=== PATIENT | male | born 1995 | race Hispanic/Latino ===

== ENCOUNTER 2020-06-26 13:53 | Emergency (ER) | payer SELFPAY ==
--- NOTE | 2020-06-26 16:38 | RAD REPORT ---
EXAM DESCRIPTION: Rosemary Single View06/26/2020 4:25 pm CLINICAL HISTORY: Chest pain COMPARISON: none FINDINGS: The lungs appear clear of acute infiltrate. The heart is normal size IMPRESSION: No acute abnormalities displayed
[2020-06-26 16:50] LABS: Absolute Lymphocytes (CBC) 2.6 K/uL (0.7-4.9); Basophils % 0.8 % (0-1.3); Hematocrit 42.6 % (39.6-49.0); Lymphocytes % 19.3 % (15.3-44.8); MPV 10.1 fL (7.6-11.3); RBC Red Blood Cell Count 4.88 M/uL (4.33-5.43)
[2020-06-26 17:02] LABS: Protime INR 1.03
[2020-06-26 17:15] LABS: ALT/SGPT 54 U/L (12-78); AST/SGOT 23 U/L (15-37); Albumin 4.1 g/dL (3.4-5.0); Alkaline Phosphatase 79 U/L (45-117); BUN Blood Urea Nitrogen 10 mg/dL (7-18); Bicarbonate 27 mmol/L (21-32); Bilirubin Direct 0.2 mg/dL (0-0.2); Bilirubin Total 0.5 mg/dL (0.2-1.0); Glucose Level 87 mg/dL (74-106); Magnesium 2.3 mg/dL (1.8-2.4); Potassium 3.8 mmol/L (3.5-5.1); Protein, Total 8.3 g/dL (6.4-8.2); Sodium Level 140 mmol/L (136-145); Troponin (Emerg Dept Use Only) < 0.02 ng/mL (0.0-0.045)
[2020-06-26 17:18] LABS: Barbiturates NEGATIVE (NEGATIVE); Benzodiazepines NEGATIVE (NEGATIVE); Cocaine NEGATIVE (NEGATIVE); METHAMPHETAM NEGATIVE (NEGATIVE); Methadone NEGATIVE (NEGATIVE); Opiates NEGATIVE (NEGATIVE); Phencyclidine NEGATIVE (NEGATIVE); THC Cannibis POSITIVE (NEGATIVE)
--- NOTE | 2020-06-26 17:32 | EDPHYS ---
Physician Documentation [facility] Name: Robbin Truong Age: 24 yrs Sex: Male : 1995 Arrival Date: 06/26/2020 Time: 13:55 Bed 17 Private MD: ED Physician Niko Baez HPI: 06/26 15:05 This 24 yrs old Male presents to ER via Ambulatory with complaints of Chest cp Pain, Breathing Difficulty. 15:05 The patient or guardian reports chest pain that is located primarily in the anterior cp chest wall, mid chest and right side of chest. 15:05 The pain does not radiate. Associated signs and symptoms: Pertinent negatives: cp abdominal pain, cough, diaphoresis, lower extremity pain, lower extremity swelling, near syncope, shortness of breath, syncope. The chest pain is described as sharp. Duration: The patient or guardian reports multiple episodes, that are intermittent. 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 Pain now resolved. Patient reports similar episode yesterday. Historical: - Allergies: 14:16 No Known Allergies; ca1 - Home Meds: 14:16 None [Active]; ca1 - PMHx: 14:16 None; ca1 - PSHx: 14:16 None; ca1 - Immunization history:: Adult Immunizations up to date, Flu vaccine is not up to date. - Social history:: Smoking status: Patient reports the use of cigarette tobacco products, smokes one-half pack cigarettes per day. ROS: 15:10 Constitutional: Negative for body aches, chills, fever, poor PO intake. cp 15:10 Eyes: Negative for injury, pain, redness, and discharge. cp 15:10 Neck: Negative for pain with movement, pain at rest, stiffness. 15:10 Cardiovascular: Positive for chest pain, Negative for edema, palpitations. 15:10 Respiratory: Negative for cough, shortness of breath, wheezing. 15:10 Abdomen/GI: Negative for abdominal pain, nausea, vomiting, and diarrhea, constipation. 15:10 Back: Negative for pain at rest, pain with movement, radiated pain. 15:10 Neuro: Negative for altered mental status, dizziness, headache, numbness, syncope, near syncope, weakness. 15:10 All other systems are negative. Exam: 15:15 Constitutional: The patient appears in no acute distress, alert, awake, cp non-diaphoretic, non-toxic, well developed, well nourished, obese. 15:15 Head/Face: Normocephalic, atraumatic. cp 15:15 Eyes: Periorbital structures: appear normal, Conjunctiva: normal, no exudate, no cp injection, Sclera: no appreciated abnormality, Lids and lashes: appear normal, bilaterally. 15:15 ENT: External ear(s): are unremarkable, Nose: is normal, Mouth: Lips: moist, Oral mucosa: moist, Posterior pharynx: Airway: no evidence of obstruction, patent. 15:15 Neck: ROM/movement: is normal, is supple, without pain, no range of motions limitations. 15:15 Chest/axilla: Inspection: normal, Palpation: is normal, no crepitus, no tenderness. 15:15 Cardiovascular: Rate: normal, Rhythm: regular, Edema: is not appreciated, JVD: is not appreciated. 15:15 Respiratory: the patient does not display signs of respiratory distress, Respirations: cp normal, no use of accessory muscles, no retractions, labored breathing, is not present, Breath sounds: are clear throughout, no decreased breath sounds, no stridor, no wheezing. 15:15 Abdomen/GI: Inspection: abdomen appears normal, Palpation: abdomen is soft and non-tender, in all quadrants. 15:15 Back: pain, is absent, ROM is normal. 15:15 Neuro: Orientation: to person, place \T\ time. Mentation: is normal, Cerebellar function: is grossly normal, Motor: moves all fours, strength is normal, Sensation: is normal. Vital Signs: 14:09 BP 157 / 75; Pulse 87; Resp 16 S; Temp 98.1(TE); Pulse Ox 100% on R/A; Weight 127.01 kg ca1 (R); Height 5 ft. 8 in. (172.72 cm) (R); Pain 3/10; 15:59 BP 134 / 75; Pulse 85; Resp 17; Temp 99.1(O); Pulse Ox 100% on R/A; mh5 16:32 BP 136 / 80; Pulse 78; Resp 16; Pulse Ox 100% ; bp 17:30 BP 127 / 79; Pulse 80; Resp 17; Temp 98.9; Pulse Ox 100% ; bp 14:09 Body Mass Index 42.57 (127.01 kg, 172.72 cm) ca1 MDM: 15:03 Patient medically screened. [facility] 17:30 Data reviewed: vital signs, nurses notes, lab test result(s), EKG, radiologic studies, cp and as a result, I will discharge patient. 17:30 Test interpretation: by ED physician or midlevel provider: ECG, chest xray negative for cp infiltrates. Counseling: I had a detailed discussion with the patient and/or guardian regarding: the historical points, exam findings, and any diagnostic results supporting the discharge/admit diagnosis, lab results, radiology results, the need for outpatient follow up, a family practitioner, to return to the emergency department if symptoms worsen or persist or if there are any questions or concerns that arise at home. Special discussion: Based on the patient's history, exam, and Dx evaluation, there is no indication for emergent intervention or inpatient Tx. It is understood by the patient/guardian that if the Sx's persist or worsen they need to return immediately for re-evaluation. 06/26 16:13 Order name: Basic Metabolic Panel; Complete Time: 17:23 cp 06/26 16:13 Order name: CBC with Diff; Complete Time: 17:07 cp 06/26 17:07 Interpretation: Normal except: WBC 13.5; LILIYA% 75.0; NEUT A 10.1. cp 06/26 16:13 Order name: LFT's; Complete Time: 17:23 cp 06/26 16:13 Order name: Magnesium; Complete Time: 17:23 cp 06/26 16:13 Order name: PT-INR; Complete Time: 17:07 cp 06/26 16:13 Order name: Troponin (emerg Dept Use Only); Complete Time: 17:23 cp 06/26 14:17 Order name: EKG; Complete Time: 14:17 ca1 06/26 14:17 Order name: EKG - Nurse/Tech; Complete Time: 14:22 ca1 06/26 16:13 Order name: XRAY Chest (1 view); Complete Time: 16:49 cp 06/26 16:49 Interpretation: Report reviewed. cp 06/26 16:13 Order name: Cardiac monitoring; Complete Time: 16:45 cp 06/26 16:13 Order name: IV Saline Lock; Complete Time: 16:46 cp 06/26 16:13 Order name: D-Dimer; Complete Time: 17:07 cp 06/26 16:13 Order name: UDS; Complete Time: 17:23 cp 06/26 16:37 Order name: Urine Dipstick--Ancillary (enter results) bd 06/26 16:13 Order name: Labs collected and sent; Complete Time: 16:46 cp 06/26 16:13 Order name: O2 Per Protocol; Complete Time: 16:46 cp 06/26 16:13 Order name: O2 Sat Monitoring; Complete Time: 16:46 cp Administered Medications: No medications were administered Disposition: 06/27 10:54 Co-signature as Attending Physician, Niko Baez MD I agree with the assessment and braxton plan of care. Disposition: 06/26/20 17:32 Discharged to Home. Impression: Other chest pain. - Condition is Stable. - Discharge Instructions: Nonspecific Chest Pain. - Prescriptions for Ibuprofen 800 mg Oral Tablet - take 1 tablet by ORAL route every 8 hours As needed take with food; 30 tablet. - Work release form, Medication Reconciliation Form, Thank You Letter, Antibiotic Education, Prescription Opioid Use form. - Follow up: Private Physician; When: 1 - 2 days; Reason: Worsening of condition. - Problem is new. - Symptoms have improved. Signatures: Dispatcher [employer] EDNiko Pires MD MD cha Page, Corey, PA PA cp Peltier, Brian, RN RN Lidia Ramirez RN RN ca1 Corrections: (The following items were deleted from the chart) 06/26 17:55 17:32 06/26/2020 17:32 Discharged to Home. Impression: Other chest pain. Condition is bp Stable. Forms are Medication Reconciliation Form, Thank You Letter, Antibiotic Education, Prescription Opioid Use. Follow up: Private Physician; When: 1 - 2 days; Reason: Worsening of condition. Problem is new. Symptoms have improved. cp
--- NOTE | 2020-06-26 17:32 | ER ---
Nurse's Notes [facility] Name: Robbin Truong Age: 24 yrs Sex: Male : 1995 Arrival Date: 06/26/2020 Time: 13:55 Bed 17 Private MD: Diagnosis: Other chest pain Presentation: 06/26 14:09 Chief complaint: Patient states: Chest pain, midsternal today, R sided chest pain ca1 yesterday. "I also felt anxious today". Had been having chest pains off/on for almost a year now. Chest pain, intermittent, non-radiating. Chest pain with deep breathing. Denies cough. Denies injury. Coronavirus screen: Client denies travel out of the [place] in the last 14 days. At this time, the client does not indicate any symptoms associated with coronavirus-19. The client reports previous COVID testing was negative. Date of collection: March 2020. Ebola Screen: Patient negative for fever greater than or equal to 101.5 degrees Fahrenheit, and additional compatible Ebola Virus Disease symptoms Patient denies exposure to infectious person. Patient denies travel to an Ebola-affected area in the 21 days before illness onset. No symptoms or risks identified at this time. Initial Sepsis Screen: Does the patient meet any 2 criteria? No. Patient's initial sepsis screen is negative. Does the patient have a suspected source of infection? No. Patient's initial sepsis screen is negative. Risk Assessment: Do you want to hurt yourself or someone else? Patient reports no desire to harm self or others. Onset of symptoms was June 26, 2020. 14:09 Method Of Arrival: Ambulatory ca1 14:09 Acuity: CHRISTA 3 ca1 Triage Assessment: 14:10 General: Appears in no apparent distress. uncomfortable, Behavior is cooperative, bp appropriate for age, anxious. Pain: Complains of pain in mid-sternal area. EENT: No deficits noted. Neuro: No deficits noted. Cardiovascular: Reports chest pain, Rhythm is sinus rhythm. Respiratory: No deficits noted. GI: No signs and/or symptoms were reported involving the gastrointestinal system. : No signs and/or symptoms were reported regarding the genitourinary system. Derm: No deficits noted. Musculoskeletal: No deficits noted. Historical: - Allergies: 14:16 No Known Allergies; ca1 - Home Meds: 14:16 None [Active]; ca1 - PMHx: 14:16 None; ca1 - PSHx: 14:16 None; ca1 - Immunization history:: Adult Immunizations up to date, Flu vaccine is not up to date. - Social history:: Smoking status: Patient reports the use of cigarette tobacco products, smokes one-half pack cigarettes per day. Screenin:10 Abuse screen: Denies threats or abuse. Denies injuries from another. Nutritional bp screening: No deficits noted. Tuberculosis screening: No symptoms or risk factors identified. Fall Risk None identified. Assessment: 14:10 General: SEE TRIAGE NOTE. bp 16:00 Reassessment: Patient appears in no apparent distress at this time. Patient and/or bp family updated on plan of care and expected duration. Pain level reassessed. Patient is alert, oriented x 3, equal unlabored respirations, skin warm/dry/pink. Pain: Denies pain. Cardiovascular: Rhythm is sinus rhythm. 17:53 Reassessment: PT D/C HOME AMBULATORY, DX WITH NONSPECIFIC CHEST PAIN. bp Vital Signs: 14:09 BP 157 / 75; Pulse 87; Resp 16 S; Temp 98.1(TE); Pulse Ox 100% on R/A; Weight 127.01 kg ca1 (R); Height 5 ft. 8 in. (172.72 cm) (R); Pain 3/10; 15:59 BP 134 / 75; Pulse 85; Resp 17; Temp 99.1(O); Pulse Ox 100% on R/A; mh5 16:32 BP 136 / 80; Pulse 78; Resp 16; Pulse Ox 100% ; bp 17:30 BP 127 / 79; Pulse 80; Resp 17; Temp 98.9; Pulse Ox 100% ; bp 14:09 Body Mass Index 42.57 (127.01 kg, 172.72 cm) ca1 ED Course: 13:55 Patient arrived in ED. ag5 14:10 Patient has correct armband on for positive identification. Bed in low position. Call bp light in reach. Side rails up X2. Adult w/ patient. panel edge painter on. Pulse ox on. NIBP on. 14:14 Triage completed. ca1 14:16 Arm band placed on right wrist. ca1 15:02 Niko Cisneros PA is PHCP. cp 15:02 Niko Baez MD is Attending Physician. cp 15:07 Chris Saleh, RN is Primary Nurse. bp 16:00 Pillow given. Pulse ox on. NIBP on. [facility] 16:26 XRAY Chest (1 view) In Process Unspecified. EDMS 16:30 Inserted saline lock: 22 gauge in right antecubital area, using aseptic technique. bp Blood collected. 17:53 No provider procedures requiring assistance completed. IV discontinued, intact, bp bleeding controlled, No redness/swelling at site. Pressure dressing applied. Patient maintains SpO2 saturation greater than 95% on room air. Administered Medications: No medications were administered Outcome: 17:32 Discharge ordered by MD. cp 17:54 Discharged to home ambulatory. bp 17:54 Condition: stable 17:54 Discharge instructions given to patient, Instructed on discharge instructions, follow up and referral plans. medication usage, Demonstrated understanding of instructions, follow-up care, medications, Prescriptions given X 1. 17:55 Patient left the ED. bp Signatures: Dispatcher [employer] EDPR Niko Cisneros PA PA cp Martinez, Maria 5 Chris Saleh, RN RN bp Lidia Arthur RN RN [facility] Kian Calles [facility]
[2020-06-26 18:09] VITALS: O2SAT 100
[2020-06-26 18:14] VITALS: BP 127/79; TEMP 98.9
[2020-06-26 20:26] LABS: Urine Blood NEGATIVE (NEG); Urine Glucose NEGATIVE (NEG); Urine Protein TRACE (NEG); Urine pH 8.5 (5.0-7.0)
--- NOTE | 2020-06-27 07:26 | EKG ---
Test Date: 2020-06-26 Test Time: 14:24:24 Poultry Farmer Egg: YASMIN MEASUREMENT RESULTS: Intervals: Rate: 79 CT: 136 QRSD: 88 QT: 358 QTc: 410 [place]: P: 53 CT: 136 QRS: 66 T: 5 INTERPRETIVE STATEMENTS: Normal sinus rhythm with sinus arrhythmia Possible Inferior infarct, age undetermined Abnormal ECG No previous ECG available for comparison Electronically Signed On 06-27-20 07:24:52 CDT by Shaheed Brunson
== END 2020-06-26 17:55 | disposition home or self-care (01) ==
LOC: ER 13:53
DX: R07.89 Other chest pain (principal); F17.210 Nicotine dependence, cigarettes, uncomplicated
CPT/HCPCS: 36415; 71045; 80048; 80076; 80307; 81003; 83735; 84484; 85025; 85379; 85610; 93005; 99285

== ENCOUNTER 2022-06-18 03:58 | Emergency (ER) | payer BC, SELFPAY ==
[2022-06-18] MEDS ORDERED: AZITHROMYCIN 250 MG TAB ONE (04:36)
--- NOTE | 2022-06-18 04:36 | ER ---
Nurse's Notes [facility] Name: Robbin Truong Age: 26 yrs Sex: Male : 1995 Arrival Date: 06/18/2022 Time: 04:04 Bed 13 Private MD: Diagnosis: Acute pharyngitis, unspecified;Fever, unspecified Presentation: 06/18 04:08 Chief complaint: Patient states: "I have had a sore throat for about a week now. Now tw5 the pain is getting so bad it hurts to drink or swallow anything.". Coronavirus screen: Vaccine status: Patient reports being unvaccinated. Ebola Screen: Patient negative for fever greater than or equal to 101.5 degrees Fahrenheit, and additional compatible Ebola Virus Disease symptoms Patient denies exposure to infectious person. Patient denies travel to an Ebola-affected area in the 21 days before illness onset. Initial Sepsis Screen: Does the patient meet any 2 criteria? No. Patient's initial sepsis screen is negative. Does the patient have a suspected source of infection? No. Patient's initial sepsis screen is negative. Risk Assessment: Do you want to hurt yourself or someone else? Patient reports no desire to harm self or others. Onset of symptoms is unknown. 04:08 Method Of Arrival: Ambulatory tw5 04:08 Acuity: CHRISTA 4 tw5 Triage Assessment: 04:09 General: Appears uncomfortable, obese, Behavior is calm, cooperative, appropriate for tw5 age. Pain: Pain currently is 8 out of 10 on a pain scale. EENT: Reports pain when swallowing. Historical: - Allergies: 04:09 No Known Allergies; tw5 - Home Meds: 04:09 None [Active]; tw5 - PMHx: 04:09 None; tw5 - PSHx: 04:09 None; tw5 - Immunization history:: Flu vaccine is not up to date. - Social history:: Smoking status: Patient reports the use of cigarette tobacco products, denies chronic smoking, but will smoke occasionally, Reported history of juuling and/or vaping. Screenin:52 Abuse screen: Denies threats or abuse. Denies injuries from another. Nutritional lg3 screening: No deficits noted. Tuberculosis screening: No symptoms or risk factors identified. Fall Risk None identified. Assessment: 04:52 General: Appears in no apparent distress. uncomfortable, Behavior is calm, cooperative. lg3 Pain: Complains of pain in throat. Neuro: No deficits noted. Douglas Agitation-Sedation Scale (RASS): 0 - Alert and Calm Level of Consciousness is awake, alert, obeys commands, Oriented to person, place, time, situation. Cardiovascular: No deficits noted. Denies chest pain, shortness of breath, Capillary refill < 3 seconds Clubbing of nail beds is absent JVD is absent Patient's skin is warm and dry. Respiratory: Reports cough that is persistent Airway is patent Trachea midline Respiratory effort is even, unlabored, Respiratory pattern is regular, symmetrical, Breath sounds are clear bilaterally. GI: No deficits noted. No signs and/or symptoms were reported involving the gastrointestinal system. Abdomen is round non-distended, obese, Bowel sounds present X 4 quads. Abd is soft and non tender X 4 quads. : No deficits noted. No signs and/or symptoms were reported regarding the genitourinary system. EENT: Throat is reddened with gag reflex present. Derm: No deficits noted. No signs and/or symptoms reported regarding the dermatologic system. Skin is intact, is healthy with good turgor, Skin is dry, Skin is normal, Skin temperature is warm. Musculoskeletal: No deficits noted. No signs and/or symptoms reported regarding the musculoskeletal system. Circulation, motion, and sensation intact. Range of motion: intact in all extremities. Vital Signs: 04:08 BP 158 / 99; Pulse 68; Resp 18; Temp 98.1; Pulse Ox 99% on R/A; Weight 136.08 kg; tw5 Height 5 ft. 8 in. (172.72 cm); Pain 8/10; 04:08 Body Mass Index 45.61 (136.08 kg, 172.72 cm) tw5 ED Course: 04:04 Patient arrived in ED. ja2 04:09 Triage completed. tw5 04:09 Arm band placed on right wrist. tw5 04:18 Niko Baez MD is Attending Physician. [facility] 04:52 Marisa Hankins, RAFFY is Primary Nurse. lg3 04:52 Patient has correct armband on for positive identification. Bed in low position. Call lg3 light in reach. Side rails up X 1. Client placed on continuous cardiac and pulse oximetry monitoring. NIBP monitoring applied. Door closed. Noise minimized. Warm blanket given. 04:52 Flu Sent. lg3 04:52 Strep Sent. lg3 04:52 SARS-COV-2 RT PCR (Document "Date of Onset" if Symptomatic) Sent. lg3 04:52 No provider procedures requiring assistance completed. Patient did not have IV access lg3 during this emergency room visit. Administered Medications: 04:52 Drug: Zithromax (azithromycin) 500 mg Route: PO; lg3 04:55 Follow up: Response: No adverse reaction lg3 Medication: 04:52 VIS not applicable for this client. lg3 Outcome: 04:35 Discharge ordered by . braxton 04:52 Discharged to home ambulatory. lg3 04:52 Condition: stable 04:52 Discharge instructions given to patient, Instructed on discharge instructions, follow up and referral plans. medication usage, Demonstrated understanding of instructions, follow-up care, medications, Prescriptions given X 3. 04:56 Patient left the ED. lg3 Signatures: Niko Baez MD MD cha Gibson, Lacie, RN RN lg3 Nathalia Hernandes Glenis Gore 5
--- NOTE | 2022-06-18 04:36 | EDPHYS ---
Physician Documentation [facility] Name: Robbin Truong Age: 26 yrs Sex: Male : 1995 Arrival Date: 06/18/2022 Time: 04:04 Bed 13 Private MD: ED Physician Niko Baez HPI: 06/18 04:30 This 26 yrs old Male presents to ER via Ambulatory with complaints of Cough, braxton Sore Throat. 04:30 The patient or guardian reports cough, flu symptoms, arthralgias, low-grade fever, braxton myalgias. Onset: The symptoms/episode began/occurred 3 day(s) ago. Severity of symptoms: At their worst the symptoms were mild, in the emergency department the symptoms are unchanged. Modifying factors: The symptoms are alleviated by nothing, the symptoms are aggravated by nothing. Associated signs and symptoms: The patient has no apparent associated signs or symptoms. The patient has not experienced similar symptoms in the past. Historical: - Allergies: 04:09 No Known Allergies; tw5 - Home Meds: 04:09 None [Active]; tw5 - PMHx: 04:09 None; tw5 - PSHx: 04:09 None; tw5 - Immunization history:: Flu vaccine is not up to date. - Social history:: Smoking status: Patient reports the use of cigarette tobacco products, denies chronic smoking, but will smoke occasionally, Reported history of juuling and/or vaping. ROS: 04:31 Constitutional: Negative for fever, chills, and weight loss, Eyes: Negative for injury, braxton pain, redness, and discharge, Neck: Negative for injury, pain, and swelling, Cardiovascular: Negative for chest pain, palpitations, and edema, Respiratory: Negative for shortness of breath, cough, wheezing, and pleuritic chest pain, Abdomen/GI: Negative for abdominal pain, nausea, vomiting, diarrhea, and constipation, Back: Negative for injury and pain, : Negative for injury, bleeding, discharge, and swelling, MS/Extremity: Negative for injury and deformity, Skin: Negative for injury, rash, and discoloration, Neuro: Negative for headache, weakness, numbness, tingling, and seizure, Psych: Negative for depression, anxiety, suicide ideation, homicidal ideation, and hallucinations, Allergy/Immunology: Negative for hives, rash, and allergies, Endocrine: Negative for neck swelling, polydipsia, polyuria, polyphagia, and marked weight changes. 04:31 ENT: Positive for sinus congestion, sore throat. Exam: 04:31 Constitutional: This is a well developed, well nourished patient who is awake, alert, braxton and in no acute distress. Head/Face: Normocephalic, atraumatic. Eyes: Pupils equal round and reactive to light, extra-ocular motions intact. Lids and lashes normal. Conjunctiva and sclera are non-icteric and not injected. Cornea within normal limits. Periorbital areas with no swelling, redness, or edema. Neck: Trachea midline, no thyromegaly or masses palpated, and no cervical lymphadenopathy. Supple, full range of motion without nuchal rigidity, or vertebral point tenderness. No Meningismus. Chest/axilla: Normal chest wall appearance and motion. Nontender with no deformity. No lesions are appreciated. Cardiovascular: Regular rate and rhythm with a normal S1 and S2. No gallops, murmurs, or rubs. Normal PMI, no JVD. No pulse deficits. Respiratory: Lungs have equal breath sounds bilaterally, clear to auscultation and percussion. No rales, rhonchi or wheezes noted. No increased work of breathing, no retractions or nasal flaring. Abdomen/GI: Soft, non-tender, with normal bowel sounds. No distension or tympany. No guarding or rebound. No evidence of tenderness throughout. Back: No spinal tenderness. No costovertebral tenderness. Full range of motion. Male : Normal genitalia with no discharge or lesions. Skin: Warm, dry with normal turgor. Normal color with no rashes, no lesions, and no evidence of cellulitis. MS/ Extremity: Pulses equal, no cyanosis. Neurovascular intact. Full, normal range of motion. Neuro: Awake and alert, GCS 15, oriented to person, place, time, and situation. Cranial nerves II-XII grossly intact. Motor strength 5/5 in all extremities. Sensory grossly intact. Cerebellar exam normal. Normal gait. Psych: Awake, alert, with orientation to person, place and time. Behavior, mood, and affect are within normal limits. 04:31 ENT: Posterior pharynx: Airway: normal, no evidence of obstruction, Tonsils: are normal in appearance, Uvula: edematous, erythema, swelling, that is mild, erythema, that is mild, exudate, is not appreciated, peritonsillar mass, is not appreciated, pooling of secretions, is not appreciated. Vital Signs: 04:08 BP 158 / 99; Pulse 68; Resp 18; Temp 98.1; Pulse Ox 99% on R/A; Weight 136.08 kg; tw5 Height 5 ft. 8 in. (172.72 cm); Pain 8/10; 04:08 Body Mass Index 45.61 (136.08 kg, 172.72 cm) tw5 MDM: 04:18 Patient medically screened. braxton 04:33 Differential diagnosis: bronchitis, influenza, laryngitis, peritonsillar abscess braxton pharyngitis, tonsillitis, upper respiratory infection, uvulitis. Differential Diagnosis: Obstructed Airway Bronchitis Influenza Upper Respiratory Infection Pharyngitis Viral Syndrome Pneumonia. Data reviewed: vital signs, nurses notes, lab test result(s). Data interpreted: pvc monitor: not applicable for this patient encounter. rate is 68 beats/min, rhythm is regular, Pulse oximetry: on room air is 99 %. Test interpretation: by ED physician or midlevel provider:. Counseling: I had a detailed discussion with the patient and/or guardian regarding: the historical points, exam findings, and any diagnostic results supporting the discharge/admit diagnosis, lab results, the need for outpatient follow up, for definitive care, a family practitioner. 06/18 04:30 Order name: SARS-COV-2 RT PCR (Document "Date of Onset" if Symptomatic) [facility] 06/18 04:30 Order name: Strep [facility] 06/18 04:30 Order name: Flu [facility] Administered Medications: 04:52 Drug: Zithromax (azithromycin) 500 mg Route: PO; lg3 04:55 Follow up: Response: No adverse reaction lg3 Disposition Summary: 06/18/22 04:35 Discharge Ordered Location: Home [facility] Problem: new braxton Symptoms: have improved braxton Condition: Stable braxton Diagnosis - Acute pharyngitis, unspecified braxton - Fever, unspecified braxton Followup: braxton - With: Private Physician - When: 2 - 3 days - Reason: Recheck today's complaints, Continuance of care, Re-evaluation by your physician Discharge Instructions: - Discharge Summary Sheet braxton - Pharyngitis braxton - Sore Throat braxton - Upper Respiratory Infection, Adult braxton - Upper Respiratory Infection, Adult, [id number] braxton - Pharyngitis, [id number]-yc-[id number] braxton - Fever, Pediatric, [id number] braxton - Form - Excuse from Work, School, or Physical Activity ds4 - Form - Return To Work ds4 Forms: - Medication Reconciliation Form braxton - Thank You Letter braxton - Antibiotic Education braxton - Prescription Opioid Use braxton - Work release form ds4 Prescriptions: - Sandy-D 12 Hour 60-120 mg Oral Tablet Sustained Release 12 hr - take 1 tablet by ORAL route every 12 hours As needed; 20 tablet; Refills: 0, [facility] Product Selection Permitted - Tessalon Perles 100 mg Oral Capsule - take 2 capsule by ORAL route every 8 hours As needed; 30 capsule; Refills: 0, [facility] Product Selection Permitted - Zithromax 500 mg Oral Tablet - take 1 tablet by ORAL route once daily for 5 days; 5 tablet; Refills: 0, [facility] Product Selection Permitted Signatures: Dispatcher [employer] Niko Armas MD MD cha Gibson, Lacie, RN RN lg3 Glenis Gore tw5
[2022-06-18 05:05] VITALS: BP 158/99; TEMP 98.1; O2SAT 99
== END 2022-06-18 04:56 | disposition home or self-care (01) ==
LOC: ER 03:58
DX: J02.9 Acute pharyngitis, unspecified (principal); R50.9 Fever, unspecified; F17.210 Nicotine dependence, cigarettes, uncomplicated; Z20.822 Contact with and (suspected) exposure to COVID-19
CPT/HCPCS: 87070; 87081; 87804 ×2; 99283; U0003

== ENCOUNTER 2024-09-21 08:00 | Emergency (ER) | payer OTHER ==
[2024-09-21] MEDS ORDERED: KETOROLAC 30 MG/ML INJ ONE (08:19)
[2024-09-21 08:42] LABS: Absolute Basophils 0.1 K/uL (0-0.5); Absolute Eosinophils 0.2 K/uL (0-0.5); Absolute Lymphocytes (CBC) 2.5 K/uL (0.7-4.9); Absolute Monocytes 0.5 K/uL (0.1-1.3); Absolute Neutrophil 5.5 K/uL (1.8-8.0); Basophils % 0.7 % (0-1.3); Eosinophils % 2.1 % (0-4.4); Hematocrit 43.5 % (39.6-49.0); Hemoglobin 14.8 g/dL (13.6-17.9); Lymphocytes % 28.6 % (15.3-44.8); MCH 30.6 pg (27.0-35.0); MCV 89.8 fL (80-100); MPV 10.2 fL (7.6-11.3); Monocytes % 5.3 % (3.3-12.3); Neutrophils % 63.3 % (41.7-73.7); Platelets 196 thou/uL (152-406); RBC Red Blood Cell Count 4.85 M/uL (4.33-5.43); Red Cell Distribution Width 13.4 % (12.1-15.2)
--- NOTE | 2024-09-21 08:44 | RAD REPORT ---
EXAM: CT brain without contrast HISTORY: Post coital headache;Headache COMPARISON: None TECHNIQUE: Multiple contiguous axial images were obtained and a CT of the brain without contrast. Sag ittal and coronal reformats were performed. One or more of the following dose reduction techniques were used: Automated exposure control, adjust ment of the mA and/or kV according to patient size, and/or iterative reconstruction. FINDINGS: No evidence of hydrocephalus, intracranial hemorrhage, or extra-axial fluid collection. The brain is normal in morphology. No evidence of midline shift or areas of brain edema. The calvarium is intact. The visualized paranasal sinuses and mastoid air cells are essentially clear . IMPRESSION: No evidence of acute intracranial abnormality.
[2024-09-21 08:51] LABS: PT Prothrombin Time 11.3 SECONDS (9.4-12.5); PTT, Activated Partial Thromb 34.8 SECONDS (24.3-36.9); Protime INR 1.08
[2024-09-21 09:02] LABS: Albumin 3.5 g/dL (3.4-5.0); Albumin/Globulin Ratio 0.9 (1.1-1.8); Anion Gap 7.9 mEq/L (5.0-15.0); Bilirubin Direct 0.2 mg/dL (0-0.2); Bilirubin Indirect, Calculated 0.6 mg/dL (0.2-0.8); Bilirubin Total 0.8 mg/dL (0.2-1.0); Globulin 3.9 g/dL (2.3-3.5); Magnesium 2.4 mg/dL (1.6-2.4); Potassium 3.9 mEq/L (3.5-5.1); Protein, Total 7.4 g/dL (6.4-8.2)
--- NOTE | 2024-09-21 09:09 | EDPHYS ---
Physician Documentation [facility] Name: Robbin Truong Age: 28 yrs Sex: Male : 1995 Arrival Date: 09/21/2024 Time: 08:00 Bed 6 Private MD: ED Physician Wesley Espinoza HPI: 09/21 08:13 This 28 yrs old Male presents to ER via Unassigned with complaints of Headache.sp3 08:13 28-year-old male with no significant past medical history presents with headache sp3 superior and posterior nature that started yesterday postcoital and is continued throughout the night into this morning. He denies any neck pain or stiffness, vision changes, focal neurological deficit, memory loss, speech changes or any other neurological complaints. Review of systems negative for neck pain, chest pain, shortness of breath, back pain, abdominal pain, syncope, rash, known sick contacts, trauma, or any other signs or symptoms on ROS at this time. No prior history of similar episode.. Historical: - Allergies: 08:13 No Known Allergies; ss - Home Meds: 08:13 None [Active]; ss - PMHx: 08:13 None; ss - PSHx: 08:13 None; ss - Immunization history:: Client reports having NOT received the Covid vaccine. - Infectious Disease History:: Denies. - Social history:: Smoking status: Patient reports the use of cigarette tobacco products, 1 pack per week. ROS: 08:14 Constitutional: Negative for fever, chills, and weight loss, Eyes: Negative for injury, sp3 pain, redness, and discharge, ENT: Negative for injury, pain, and discharge, Neck: Negative for injury, pain, and swelling, Cardiovascular: Negative for chest pain, palpitations, and edema, Respiratory: Negative for shortness of breath, cough, wheezing, and pleuritic chest pain, Abdomen/GI: Negative for abdominal pain, nausea, vomiting, diarrhea, and constipation, Back: Negative for injury and pain, MS/Extremity: Negative for injury and deformity, Skin: Negative for injury, rash, and discoloration, Neuro: Negative for headache, weakness, numbness, tingling, and seizure, Psych: Negative for depression, anxiety, suicide ideation, homicidal ideation, and hallucinations, Allergy/Immunology: Negative for hives, rash, and allergies, Endocrine: Negative for neck swelling, polydipsia, polyuria, polyphagia, and marked weight changes, Hematologic/Lymphatic: Negative for swollen nodes, abnormal bleeding, and unusual bruising, 08:14 All other systems are negative, Exam: 08:14 Constitutional: This is a well developed, well nourished patient who is awake, alert, sp3 and in no acute distress. Head/Face: Normocephalic, atraumatic. Eyes: Pupils equal round and reactive to light, extra-ocular motions intact. Lids and lashes normal. Conjunctiva and sclera are non-icteric and not injected. Cornea within normal limits. Periorbital areas with no swelling, redness, or edema. ENT: Nares patent. No nasal discharge, no septal abnormalities noted. External auditory canals are clear. Oropharynx with no redness, swelling, or masses, exudates, or evidence of obstruction, uvula midline. Mucous membranes moist. Neck: Trachea midline, no thyromegaly or masses palpated, and no cervical lymphadenopathy. Supple, full range of motion without nuchal rigidity, or vertebral point tenderness. No Meningismus. Chest/axilla: Normal chest wall appearance and motion. Nontender with no deformity. No lesions are appreciated. Cardiovascular: Regular rate and rhythm with a normal S1 and S2. No gallops, murmurs, or rubs. Normal PMI, no JVD. No pulse deficits. Respiratory: Lungs have equal breath sounds bilaterally, clear to auscultation and percussion. No rales, rhonchi or wheezes noted. No increased work of breathing, no retractions or nasal flaring. Abdomen/GI: Soft, non-tender, with normal bowel sounds. No distension or tympany. No guarding or rebound. No evidence of tenderness throughout. Back: No spinal tenderness. No costovertebral tenderness. Full range of motion. Skin: Warm, dry with normal turgor. Normal color with no rashes, no lesions, and no evidence of cellulitis. MS/ Extremity: Pulses equal, no cyanosis. Neurovascular intact. Full, normal range of motion. Neuro: Awake and alert, GCS 15, oriented to person, place, time, and situation. Cranial nerves II-XII grossly intact. Motor strength 5/5 in all extremities. Sensory grossly intact. Cerebellar exam normal. Normal gait. Psych: Awake, alert, with orientation to person, place and time. Behavior, mood, and affect are within normal limits. Vital Signs: 08:12 BP 143 / 77; Pulse 87; Resp 14; Temp 97.7(O); Pulse Ox 100% on R/A; Weight 140.61 kg; ss Height 5 ft. 8 in. ; Pain 2/10; 09:10 BP 132 / 75; Pulse 80; Resp 17; Pulse Ox 99% ; rs5 08:12 Body Mass Index 47.13 (140.61 kg, 172.72 cm) ss 08:12 Pain Scale: Adult ss MDM: 08:04 Medical Screening Exam initiated sp3 08:14 Data reviewed: vital signs, nurses notes, lab test result(s), radiologic studies. ED sp3 course: 28-year-old male with postcoital headache. Differential diagnosis includes idiopathic headache, intracranial pathology including potential bleeding though unlikely, metabolic process, among others. Workup will include CT scan of the head noncontrast, general labs and ketorolac IV. Vital signs are stable patient has normal neurological exam. Disposition probable discharge if workup is negative.. 09:08 ED course: CT scan negative and labs normal. Patient improved after ketorolac. We will sp3 safely discharge patient home at this time.. 09/21 08:12 Order name: Basic Metabolic Panel; Complete Time: 09:07 sp3 09/21 08:12 Order name: CBC with Diff; Complete Time: 08:46 sp3 09/21 08:12 Order name: Hepatic Function; Complete Time: 09:07 sp3 09/21 08:12 Order name: Magnesium; Complete Time: 09:07 sp3 09/21 08:12 Order name: Protime (+inr); Complete Time: 08:58 sp3 09/21 08:12 Order name: Ptt, Activated; Complete Time: 08:58 sp3 09/21 08:12 Order name: CT Head Brain wo Cont; Complete Time: 08:46 sp3 09/21 08:12 Order name: IV Saline Lock; Complete Time: 08:34 sp3 09/21 08:12 Order name: Labs collected and sent; Complete Time: 08:34 sp3 09/21 08:12 Order name: NPO; Complete Time: 08:37 sp3 Administered Medications: 08:37 Drug: Ketorolac IVP 30 mg IVP once Route: IVP; Site: left antecubital; rs5 09:00 Follow up: Response: No adverse reaction; Pain is decreased rs5 Disposition Summary: 09/21/24 09:09 Discharge Ordered Notes: Location: Home sp3 Condition: Stable sp3 Diagnosis - Postcoital headache sp3 Followup: sp3 - With: Private Physician - When: Upon discharge from the Emergency Department - Reason: If symptoms return Discharge Instructions: - Discharge Summary Sheet sp3 - General Headache Without Cause sp3 Forms: - Medication Reconciliation Form sp3 - Antibiotic Education sp3 - Prescription Opioid Use sp3 - Patient Portal Instructions sp3 - Leadership Thank You Letter sp3 - Work release form rs5 Signatures: Dispatcher [employer] Karina Milner RN RN ss Wesley Espinoza MD MD sp3 Rolan Treviño RN RN rs5
--- NOTE | 2024-09-21 09:09 | ER ---
Nurse's Notes [facility] Name: Robbin Truong Age: 28 yrs Sex: Male : 1995 Arrival Date: 09/21/2024 Time: 08:00 Bed 6 Private MD: Diagnosis: Postcoital headache Presentation: 09/21 08:12 Chief complaint: Patient states: CASTILLO that began yesterday afternoon that began after ss having intercourse. Pt reports pain is relieved some with Tylenol. Took Tylenol x 2 tabs prior to arrival. Coronavirus screen: Client denies travel out of the [place] in the last 14 days. Ebola Screen: Patient denies exposure to infectious person. Patient denies travel to an Ebola-affected area in the 21 days before illness onset. Initial Sepsis Screen: Does the patient meet any 2 criteria? No. Patient's initial sepsis screen is negative. Does the patient have a suspected source of infection? No. Patient's initial sepsis screen is negative. Risk Assessment: Do you want to hurt yourself or someone else? Patient reports no desire to harm self or others. Onset of symptoms was September 20, 2023. 08:12 Method Of Arrival: Ambulatory ss 08:12 Acuity: CHRISTA 3 ss Triage Assessment: 08:13 Headache History: Denies prior headaches. General: Appears in no apparent distress. ss Behavior is calm, cooperative. Pain: Complains of pain in back of head Pain currently is 2 out of 10 on a pain scale. EENT: Nares are clear Oral mucosa is moist. Neuro: Level of Consciousness is awake, alert, obeys commands, Oriented to person, place, time, situation, Fax Machine Operator are equal bilaterally. Neuro: Reports Denies blurred vision dizziness. Respiratory: Airway is patent Respiratory effort is even, unlabored, Respiratory pattern is regular, symmetrical. Derm: Skin is intact, is healthy with good turgor, Skin is pink, warm \T\ dry. normal. Historical: - Allergies: 08:13 No Known Allergies; ss - Home Meds: 08:13 None [Active]; ss - PMHx: 08:13 None; ss - PSHx: 08:13 None; ss - Immunization history:: Client reports having NOT received the Covid vaccine. - Infectious Disease History:: Denies. - Social history:: Smoking status: Patient reports the use of cigarette tobacco products, 1 pack per week. Screenin:04 [facility] ED Fall Risk Assessment (Adult) History of falling in the last 3 months, rs5 including since admission No falls in past 3 months (0 pts) Confusion or Disorientation No (0 pts) Intoxicated or Sedated No (0 pts) Impaired Gait No (0 pts) Mobility Assist Device Used No (0 pt) Altered Elimination No (0 pt) Score/Fall Risk Level 0 - 2 = Low Risk Oriented to surroundings, Maintained a safe environment. Abuse screen: Denies threats or abuse. Nutritional screening: No deficits noted. Tuberculosis screening: No symptoms or risk factors identified. Assessment: 08:05 General: Appears in no apparent distress. uncomfortable, Behavior is calm, cooperative. rs5 Pain: Complains of pain in head Pain currently is 8 out of 10 on a pain scale. Quality of pain is described as aching, Is continuous. Neuro: Level of Consciousness is awake, alert, obeys commands, Oriented to person, place, time, situation. Cardiovascular: Patient's skin is warm and dry. Respiratory: Airway is patent Respiratory effort is even, unlabored, Respiratory pattern is regular, symmetrical. GI: Abdomen is round non-distended, Abd is soft and non tender X 4 quads. : No signs and/or symptoms were reported regarding the genitourinary system. EENT: No signs and/or symptoms were reported regarding the EENT system. Derm: Skin is intact, Skin is pink, warm \T\ dry. Musculoskeletal: Range of motion: intact in all extremities. 08:31 Reassessment: Patient and/or family updated on plan of care and expected duration. Pain rs5 level reassessed. Patient is alert, oriented x 3, equal unlabored respirations, skin warm/dry/pink. 09:10 Reassessment: Patient and/or family updated on plan of care and expected duration. Pain rs5 level reassessed. Patient is alert, oriented x 3, equal unlabored respirations, skin warm/dry/pink. Patient states feeling better. Vital Signs: 08:12 BP 143 / 77; Pulse 87; Resp 14; Temp 97.7(O); Pulse Ox 100% on R/A; Weight 140.61 kg; ss Height 5 ft. 8 in. ; Pain 2/10; 09:10 BP 132 / 75; Pulse 80; Resp 17; Pulse Ox 99% ; rs5 08:12 Body Mass Index 47.13 (140.61 kg, 172.72 cm) ss 08:12 Pain Scale: Adult ss ED Course: 08:02 Patient arrived in ED. im 08:04 Wesley Espinoza MD is Attending Physician. sp3 08:04 Patient has correct armband on for positive identification. Placed in gown. Bed in low rs5 position. Call light in reach. Side rails up X2. 08:04 No provider procedures requiring assistance completed. rs5 08:13 Triage completed. ss 08:13 Arm band placed on right wrist. ss 08:21 CT Head Brain wo Cont In Process Unspecified. EDMS 08:30 Rolan Treviño, RN is Primary Nurse. rs5 08:34 Basic Metabolic Panel Sent. em1 08:34 CBC with Diff Sent. em1 08:34 Hepatic Function Sent. em1 08:34 Magnesium Sent. em1 08:34 Protime (+inr) Sent. em1 08:34 Ptt, Activated Sent. em1 08:34 Initial lab(s) drawn, by me, sent to lab. Inserted saline lock: 20 gauge in left em1 antecubital area, using aseptic technique. Blood collected. Flushed with 10 mL NS. 09:00 Provided Education on: discharge instructions . rs5 09:10 IV discontinued, intact, bleeding controlled, No redness/swelling at site. Pressure rs5 dressing applied. Administered Medications: 08:37 Drug: Ketorolac IVP 30 mg IVP once Route: IVP; Site: left antecubital; rs5 09:00 Follow up: Response: No adverse reaction; Pain is decreased rs5 Medication: 08:36 VIS not applicable for this client. rs5 Outcome: 09:09 Discharge ordered by . sp3 09:10 Discharged to home ambulatory, rs5 09:10 Condition: stable rs5 09:10 Discharge instructions given to patient, family, Instructed on discharge instructions, follow up and referral plans. Demonstrated understanding of instructions, follow-up care, 09:16 Patient left the ED. rs5 Signatures: Dispatcher [employer] EDMS Avtar Stone em1 Karina Figueroa, RAFFY RN Wesley Espinoza MD MD sp3 Rolan Treviño, RAFFY RN rs5 Leana Perrin im
[2024-09-22 02:49] VITALS: BP 132/75; TEMP 97.7; O2SAT 99
== END 2024-09-21 09:16 | disposition home or self-care (01) ==
LOC: ER 08:00
DX: G44.82 Headache associated with sexual activity (principal); F17.210 Nicotine dependence, cigarettes, uncomplicated
CPT/HCPCS: 36415; 70450; 80048; 80076; 83735; 85025; 85610; 85730; 96374; 99284